=== PATIENT | female | born 1975 | race Caucasian/White ===

== ENCOUNTER 2017-07-24 12:25 | Outpatient (CLI) | payer OTHER ==
[2017-07-24] MEDS ORDERED: PRENATAL 19 TA1 EACH PO (18:21)
== END 2017-07-25 13:32 | disposition home or self-care (01) ==
LOC: OBS/DEL 12:25
DX: O60.03 Preterm labor without delivery, third trimester (principal); Z34.83 Encounter for supervision of other normal pregnancy, third trimester

== ENCOUNTER 2017-09-03 22:53 | Inpatient (IN) | payer OTHER ==
[~2017-09-03] VITALS: Ht 167.6 cm; Wt 3.2 kg
[~2017-09-03 22:53] MED LIST: PRENATAL 19 TA1 EACH PO
[2017-09-03] MEDS ORDERED: ZANTAC150 M3 PO (23:00)
== END 2017-09-08 13:47 | DRG 766 ==
LOC: OBS/DEL 22:53 → SURG-SUITE 09-04 08:40 → OBS/DEL 09-04 08:40 → LDR 09-04 08:40 → O/R 09-05 09:00 → OB/GYN 09-05 13:25 → SURG-SUITE 09-05 13:48
PROVIDERS: Obstetrics & Gynecology
PROC: 0UL70ZZ Occlusion of Bilateral Fallopian Tubes, Open Approach (ICD-10-PCS; 2017-09-05)
PROC: 4A033R1 Measurement of Arterial Saturation, Peripheral, Percutaneous Approach (ICD-10-PCS; 2017-09-05)
PROC: 4A1HXCZ Monitoring of Products of Conception, Cardiac Rate, External Approach (ICD-10-PCS; 2017-09-05)
PROC: 10D00Z1 Extraction of Products of Conception, Low, Open Approach (ICD-10-PCS; principal; 2017-09-05 09:00)
DX: O76 Abnormality in fetal heart rate and rhythm complicating labor and delivery (principal); Z3A.37 37 weeks gestation of pregnancy; Z37.0 Single live birth; Z30.2 Encounter for sterilization; O09.523 Supervision of elderly multigravida, third trimester